=== PATIENT | female | born 1995 | race Caucasian/White ===

== ENCOUNTER 2016-10-12 21:12 | Emergency (ER) | payer OTHER ==
[2016-10-12 22:58] VITALS: BP 128/69
== END 2016-10-12 22:58 | disposition home or self-care (01) ==
LOC: ED 21:12
DX: R42 Dizziness and giddiness (principal); M79.1 Myalgia; M54.5 Low back pain; R07.89 Other chest pain; M54.2 Cervicalgia
CPT/HCPCS: Q0092

== ENCOUNTER 2017-02-11 18:26 | Emergency (ER) | payer OTHER ==
[~2017-02-11] VITALS: Ht 157.5 cm; Wt 44.6 kg
[2017-02-11 18:51] VITALS: BP 120/55
== END 2017-02-11 20:50 | disposition home or self-care (01) ==
LOC: ED 18:26
DX: S16.1XXA Strain of muscle, fascia and tendon at neck level, initial encounter (principal); S40.011A Contusion of right shoulder, initial encounter; V43.62XA Car passenger injured in collision with other type car in traffic accident, initial encounter; Y93.19 Activity, other involving water and watercraft; Y92.488 Other paved roadways as the place of occurrence of the external cause; Y99.8 Other external cause status
CPT/HCPCS: J1885